=== PATIENT | female | born 1965 | race Caucasian/White ===

== ENCOUNTER 2019-04-03 08:35 | Day surgery (SDC) | payer MEDICARE, MEDICAID ==
[2019-04-02 13:07] LABS: BASOPHILS # (AUTO) 0.07 x10^3/uL (0-0.1); BASOPHILS % (AUTO) 1 % (0-1); EOSINOPHILS # (AUTO) 0.05 x10^3/uL (0-0.4); EOSINOPHILS % (AUTO) 1 % (1-7); LYMPHOCYTES # (AUTO) 2.42 x10^3/uL (1-3.4); LYMPHOCYTES % (AUTO) 34 % (22-44); MD NO; MEAN CORPUSCULAR HEMOGLOBIN 29.9 pg (27.0-34.8); MEAN CORPUSCULAR HGB CONC 32.3 g/dL (32.4-35.8); MEAN CORPUSCULAR VOLUME 92.4 fL (80-100); MEAN PLATELET VOLUME 9.4 fL (7.4-10.4); MONOCYTES # (AUTO) 0.53 x10^3/uL (0.2-0.8); MONOCYTES % (AUTO) 7 % (2-9); NEUTROPHILS % (AUTO) 57 % (42-75); PLATELET COUNT 261 x10^3/uL (130-400); RED BLOOD COUNT 4.71 x10^6/uL (3.82-5.3); RED CELL DISTRIBUTION WIDTH 12.5 % (9.6-15.2)
[2019-04-02 13:15] LABS: ALANINE AMINOTRANSFERASE 27 U/L (12-78); ALBUMIN 3.8 g/dL (3.4-5.0); CHLORIDE 110 mmol/L (98-107); CREATININE 0.89 mg/dL (0.55-1.02)
[2019-04-02 13:17] LABS: ALKALINE PHOSPHATASE 81 U/L (45-117); BILIRUBIN,TOTAL 0.2 mg/dL (0.2-1.0); TOTAL PROTEIN 7.9 g/dL (6.4-8.2)
[2019-04-02 13:19] LABS: MICROSCOPIC INDICATED
[2019-04-02 13:31] LABS: CULTURE INDICATED? YES
[2019-04-02 13:32] LABS: ANION GAP 3 mmol/L (5-15)
[~2019-04-03] VITALS: Ht 162.6 cm; Wt 65.8 kg
[~2019-04-03 08:35] MED LIST: CLON0.5T11 PO; thorazine PO
[2019-04-03 09:00] VITALS: BP 104/70
[2019-04-03] MEDS ORDERED: FENTANYL PF 100 MCG/2ML ONE (09:00)
[2019-04-03] MEDS ORDERED: LACTATED RINGERS 1,000 ML IV SCH (09:03)
[2019-04-03] MEDS ORDERED: ONDANSETRON ODT 8 MG PO ONE (09:30)
[2019-04-03] MEDS ORDERED: ACETAMINOPHEN 500 MG TABLET PO ONE (09:30)
[2019-04-03] MEDS ORDERED: KETOROLAC 30 MG/1 ML ONE (09:34)
[2019-04-03] MEDS ORDERED: PROPOFOL 10 MG/ML, 20ML ONE (09:34)
[2019-04-03] MEDS ORDERED: SILVER NITRATE STICK TP ONE (09:48)
[2019-04-03] MEDS ORDERED: LIDOCAINE 1%-EPI 1:100K, 20ML ONE (09:59)
[2019-04-03] MEDS ORDERED: OXYcodone 5 MG/5 ML ORAL.SOL UDC PO PRN (10:00)
[2019-04-03] MEDS ORDERED: ACETAMINOPHEN 325 MG TABLET PO PRN (10:00)
[2019-04-03] MEDS ORDERED: FENTANYL PF 100 MCG/2ML IV PRN (10:00)
[2019-04-03] MEDS ORDERED: ONDANSETRON 2MG/ML, 2ML IV PRN (10:00)
[2019-04-03] MEDS ORDERED: METOCLOPRAMIDE 5 MG/ML, 2ML IV PRN (10:00)
[2019-04-03] MEDS ORDERED: OXYcodone 5 MG/5 ML ORAL.SOL UDC ONE (10:57)
== END 2019-04-03 14:00 | disposition home or self-care (01) ==
LOC: OUT 08:35 → EDSTATUS 11:00 → OUT 14:00
PROVIDERS: ATTEND Obstetrics & Gynecology Gynecology
DX: N95.0 Postmenopausal bleeding (principal); N71.1 Chronic inflammatory disease of uterus; Z79.899 Other long term (current) drug therapy
CPT/HCPCS: 36415; 58120; 80053; 81001; 85025; 87086; 88305; 93005; J1885; J2704; J3010; J3490; J7120; Q0162